=== PATIENT | female | born 1970 | race Caucasian/White ===

== ENCOUNTER 2021-03-17 05:02 | Inpatient (IN) | payer BC ==
[~2021-03-17] VITALS: Ht 165.1 cm; Wt 72.2 kg
[2021-03-17] MEDS ORDERED: BISACODYL 10 MG SUPP (DULCOLAX) PR PRN (05:30)
[2021-03-17] MEDS ORDERED: ONDANSETRON 4 MG/2 ML (SDV) Z0FRAN IV PRN (05:30)
[2021-03-17] MEDS ORDERED: ANTACID SUSP 30 ML UDC (MYLANTA) PO PRN ×2 (05:30→08:00)
[2021-03-17] MEDS ORDERED: DOCUSATE SODIUM 100 MG (COLACE) CAP PO PRN (05:30)
[2021-03-17] MEDS ORDERED: ACETAMINOPHEN 500 MG TAB (TYLENOL) PO PRN (05:30)
[2021-03-17] MEDS ORDERED: LOPERAMIDE 2 MG (IMODIUM) TABLET PO PRN (05:30)
[2021-03-17] MEDS ORDERED: diphenhydrAMINE 25 MG TAB (BENADRYL) PO PRN ×2 (05:30)
[2021-03-17] MEDS ORDERED: LACTULOSE SYRUP 10GM/15ML (ENULOSE) 30ML UDC PO PRN (05:30)
[2021-03-17] MEDS ORDERED: MILK OF MAGNESIA 400 MG/5 ML 30 ML UDC PO PRN (05:30)
[2021-03-17] MEDS ORDERED: ONDANSETRON 4 MG (ZOFRAN) ORAL DISSOLVE TAB PO PRN (05:30)
[2021-03-17] MEDS ORDERED: NALOXONE 0.4 MG/ML 1 ML (NARCAN) VIAL IV PRN (05:30)
[2021-03-17] MEDS ORDERED: diphenhydrAMINE 50 MG/ML INJ (BENADRYL) IVP PRN (05:30)
[2021-03-17] MEDS ORDERED: CALCIUM CARBONATE 500 MG (TUMS) TAB.CHEW PO PRN ×2 (05:30)
[2021-03-17] MEDS ORDERED: polyethylene glycoL POWDER 17 GM (MIRALAX) PACK PO PRN (05:30)
[2021-03-17] MEDS ORDERED: MELATONIN 3 MG TABLET PO PRN (05:30)
[2021-03-17] MEDS ORDERED: ALPRAZolam 0.25 MG (XANAX) TAB PO PRN (05:30)
[2021-03-17] MEDS ORDERED: HYDROcodone/APAP 5 MG/325 MG (LORTAB) TAB PO PRN (05:30)
--- OUTSIDE RECORDS SUMMARY | 2021-03-17 06:54 | XMS REPORT | Clinical Summary ---
Author Author [facility] Address Unknown Phone Unavailable Care Team Providers Care Railcar Switchman Name Role Phone Prosper Nichols PCP Source Comments Some departments are not documenting in the electronic medical record. If you d o not see the information that you expected, contact Release of Information in [facility] [employer] Information Management department at [phone] for further assistan ce in locating additional records.[facility] Allergies Not on File Medications End Date Status Medication Sig Dispensed Refills Start Date Active estradioL (ESTRACE) 1 mg Take 1 mg by 0 tablet mouth daily. Active escitalopram oxalate Take 10 mg by 0 (LEXAPRO) 10 mg tablet mouth daily. 0 Active telmisartan (MICARDIS) 40 Take 40 mg by 0 03/0 mg tablet mouth daily. 0 Active gabapentin (NEURONTIN) Take one 180 capsule 3 100 mg capsule capsule by 0 mouth twice daily. Active atorvastatin (LIPITOR) 40 Take 40 mg by 0 / mg tablet mouth at 0 bedtime daily. Active clopiDOGrel (PLAVIX) 75 Take 75 mg by 0 mg tablet mouth every 0 morning. Active isosorbide mononitrate SR 0 (IMDUR) 30 mg tablet 0 Active aspirin 81 mg chewable CHEW AND 0 02 tablet SWALLOW 1 0 TABLET BY MOUTH IN THE MORNING Active Problems Not on file Surgical History Surgery Date Site/Laterality Comments HYSTERECTOMY FOOT SURGERY Medical History Medical History Date Comments Essential hypertension, benign Anxiety disorder Family History Medical History Relation Name Comments None Reported Brother Heart Disease Father Hypertension Father Heart Disease Paternal Grandmother None Reported Sister None Reported Sister None Reported Son Relation Name Status Comments Brother Alive Father Alive Maternal Grandfather Maternal Grandmother Mother Alive Paternal Grandfather Paternal Grandmother Sister Alive Sister Alive Son Alive Social History Date Tobacco Use Types Packs/Day Years Used Never Smoker Smokeless Tobacco: Never Used Comments Alcohol Use Standard Drinks/Week Never 0 (1 standard drink = 0.6 o z pure alcohol) Alcohol Habits Answer Date Recorded How often do you have a drink containing alcohol? Never 10/15/2019 How many drinks containing alcohol do you have on No t asked a typical day when you are drinking? How often do you have six or more drinks on one Not asked occasion? Sex Assigned at Date Recorded Female 10/23/2019 7:47 AM CDT Last Filed Vital Signs Reading Time Taken Comments Vital Sign 131/89 01/20/2020 10:38 AM CDT Blood Pressure 62 01/20/2020 10:38 AM CDT Pulse 36.4 C (97.5 F) 01/20/2020 10:38 AM CDT Temperature 16 01/20/2020 10:38 AM CDT Respiratory Rate 100% 01/20/2020 10:38 AM CDT Oxygen Saturation - - Inhaled Oxygen Concentration 74.4 kg (164 lb) 01/20/2020 10:38 AM CDT Weight 167.6 cm (5' 6") 01/20/2020 10:38 AM CDT Height 26.47 01/20/2020 10:38 AM CDT Body Mass Index Plan of Treatment Health Maintenance Due Date Last Done Comments DTAP/TDAP VACCINES (1 - 1989 Tdap) HEPATITIS C SCREENING 1989 PHYSICAL (COMPREHENSIVE) 1989 EXAM CERVICAL CANCER SCREENING 1992 BREAST CANCER SCREENING 2011 INFLUENZA VACCINE 04/28/2021 HIV SCREENING Completed 10/23/2019 Results Not on filefrom Last 3 Months Insurance Type Payer Benefit Subscriber ID Effective Phone Address Plan / Dates Group PPO BCBS [facility] [id number] PREF CARE resent BLUE Advance Directives Patient Electronics Manufacturer Explanation Type Date Recorded Advance Directive/DPOA
[2021-03-17 07:43] LABS: BASOPHILS # (AUTO) 0.1 10^3/uL (0.0-0.1); BASOPHILS % (AUTO) 1 % (0-10); EOSINOPHILS # (AUTO) 0.1 10^3/uL (0.0-0.3); EOSINOPHILS % (AUTO) 2 % (0-10); HEMATOCRIT 42 % (35-52); HEMOGLOBIN 14.2 g/dL (11.5-16.0); LYMPHOCYTES # (AUTO) 1.1 10^3/uL (1.0-4.0); LYMPHOCYTES % (AUTO) 16 % (12-44); MEAN CORPUSCULAR HEMOGLOBIN 31 pg (25-34); MEAN CORPUSCULAR HGB CONC 34 g/dL (32-36); MEAN CORPUSCULAR VOLUME 90 fL (80-99); MEAN PLATELET VOLUME 9.7 fL (9.0-12.2); MONOCYTES # (AUTO) 0.6 10^3/uL (0.0-1.0); MONOCYTES % (AUTO) 8 % (0-12); NEUTROPHILS % (AUTO) 73 % (42-75); PLATELET COUNT 206 10^3/uL (130-400); WHITE BLOOD COUNT 6.9 10^3/uL (4.3-11.0)
[2021-03-17 08:00] LABS: ALBUMIN 3.8 GM/DL (3.2-4.5); BILIRUBIN,TOTAL 0.6 MG/DL (0.1-1.0); CALCIUM 9.6 MG/DL (8.5-10.1); CREATININE SERUM 0.78 MG/DL (0.60-1.30); TOTAL PROTEIN 6.3 GM/DL (6.4-8.2)
[2021-03-17] MEDS: DOCUSATE SODIUM 100 MG (COLACE) CAP PO SCH ×2 (08:00→21:45)
[2021-03-17] MEDS: SENNA W/DOCUSATE (SENOKOT S) TABLET PO SCH ×2 (08:01→21:45)
[2021-03-17] MEDS: SENNOSIDES 8.6 MG (SENOKOT) TAB PO SCH ×2 (08:01→21:45)
[2021-03-17] MEDS ORDERED: CLOPIDOGREL 300 MG (PLAVIX) TABLET PO ONE (09:15)
--- NOTE | 2021-03-17 09:42 | Consultation-Cardiology ---
HPI-Cardiology Cardiology Consultation: Date of Consultation 03/17/21 Time Seen by a Provider: 08:45 Date of Admission Attending Physician Marcela Devries DO Admitting Physician Lindsay,Local Physician Consulting Physician SAKINA ASHLEY MD, MA, FACP, FACC, FSCAI, CCDS HPI: Chief Complaint: Chest discomfort HPI 50 yo woman admitted to Dr Devries's service after being transferred from [place] where she had presented with upper, midsternal, chest discomfort, radiating to neck and intermittently associated with diaphoresis. First two sets of troponin at [place] were, reportedly, normal. Troponin done at this hospital has been mildly elevated. The chest discomfort persisted a couple of hours and she has not had any since about 3 am today. Denies palp or syncope. [facility] had similar discomfort a year ago and underwent cardiac by her telecommunications officer Dr Cunha at [facility]. [facility] was told had only about 20% blockage. Was place on Plavix for a year, and on ASA indefinitely. Has also since been on isosorbide. Notes a h/o hyperlipidemia for which she has been on atorvastatin Review of Systems-Cardiology Review of Systems Constitutional: No lightheadedness, No malaise, No tiredness, No weight loss, No weight gain Eyes: No vision change Ears/Nose/Throat: No ear discharge, No nasal drainage, No recent hearing loss Respiratory: As described under HPI Cardiovascular: As described under HPI Gastrointestinal: No diarrhea, No nausea, No vomiting Genitourinary: No dysuria, No hematuria, No urine frequency changes Musculoskeletal: No back pain, No joint pain Skin: No rash, No ulcerations Psychiatric/Neurological: No seizure, No focal weakness, No syncope Hematologic: No bleeding abnormalities UZN-Nlvsjp-Czyamj Hx Patient Social History Have you traveled recently?: No Alcohol Use?: No Pt feels they are or have been: No Past Medical History PMH As described under Assessment. Family Medical History Family Medical History: Does not report fam h/o early CAD Allergies and Home Medications Allergies Coded Allergies: No Allergy Information Available (Unverified , 03/17/21) Patient Home Medication List Home Medication List Reviewed: Yes Physical Exam-Cardiology Physical Exam Vital Signs/I&O 03/17/21 03/17/21 03/17/21 03/17/21 06:23 06:29 07:00 07:00 Temp 36.0 Pulse 57 52 57 Resp 16 8 B/P (MAP) 130/65 (86) 132/73 (95) Pulse Ox 100 100 O2 Delivery Nasal Cannula Nasal Cannula Nasal Cannula O2 Flow Rate 2.00 2.00 2.00 03/17/21 03/17/21 03/17/21 03/17/21 07:24 08:00 08:32 08:35 Temp 35.8 Pulse 52 Resp 9 B/P (MAP) 122/69 (95) Pulse Ox 100 O2 Delivery Nasal Cannula Room Air Room Air O2 Flow Rate 2.00 Capillary Refill : Constitutional: AAO x 3, well-developed, well-nourished HEENT: hearing is well preserved Neck: carotid pulses are 2 + bilaterally, with good upstrokes Respiratory: No accessory muscle use; other (good, biateral air entry) Cardiovascular: regular rate-rhythm, S1 and S2, systolic murmur (faint TEODORA at card basse) Gastrointestinal: No tender; soft; No guarding, No rebound; audible bowel sounds Extremities: No clubbing, No cyanosis, No significant edema Neurologic/Psychiatric: oriented x 3, other (moves all limbs equally) Skin: No rash on exposed areas, No ulcerations on exposed areas Data Review Labs Laboratory Tests 03/17/21 07:37: White Blood Count 6.9, Red Blood Count 4.66, Hemoglobin 14.2, Hematocrit 42, Mean Corpuscular Volume 90, Mean Corpuscular Hemoglobin 31, Mean Corpuscular Hemoglobin Concent 34, Red Cell Distribution Width 11.9, Platelet Count 206, Mean Platelet Volume 9.7, Immature Granulocyte % (Auto) 0, Neutrophils (%) (Auto) 73, Lymphocytes (%) (Auto) 16, Monocytes (%) (Auto) 8, Eosinophils (%) (A uto) 2, Basophils (%) (Auto) 1, Neutrophils # (Auto) 5.0, Lymphocytes # (Auto) 1.1, Monocytes # (Auto) 0.6, Eosinophils # (Auto) 0.1, Basophils # (Auto) 0.1, Immature Granulocyte # (Auto) 0.0, Sodium Level 141, Potassium Level 4.0, Chloride Level 108H, Carbon Dioxide Level 25, Anion Gap 8, Blood Urea Nitrogen 17, Creatinine 0.78, Estimat Glomerular Filtration Rate 78, BUN/Creatinine Ratio 22, Glucose Level 102, Calcium Level 9.6, Corrected Calcium 9.8, Total Bilirubin 0.6, Aspartate Amino Transf (AST/SGOT) 18, Alanine Aminotransferase (ALT/SGPT) 16, Alkaline Phosphatase 91, Troponin I 0.203H, Total Protein 6.3L, Albumin 3.8 Laboratory Tests 03/17/21 07:37 A/P-Cardiology Assessment/Admission Diagnosis Ac NSTEMI CAD - pt report h/o 20% stenoses on card cath of early [address] Cunha at [facility] Hypertension Discussion and Recomendations * Card cath advised. Discussed this in detail. She understands all issues and refuses cardiac cath. Says will let us know if she changes her mind * Dual antiplatet therapy * Continue statin and isosorbide and telmisartan that she has chronically been on * Not suitable for beta-olivia, given considerable sinus lukas at baseline * Echo * Further recs based on hospital course SAKINA ASHLEY MD FACP FAC CCDS Mar 17, 2021 09:42
[2021-03-17] MEDS ORDERED: ISOSORBIDE MONONITRATE 30 MG (IMDUR) TAB PO SCH ×2 (09:50→21:00)
[2021-03-17] MEDS: PANTOPRAZOLE 40 MG (PROTONIX) TAB PO SCH (10:04)
[2021-03-17] MEDS: ASPIRIN 81 MG CHEW (CHILDREN'S ASA) PO SCH (10:04)
[2021-03-17] MEDS: ENOXAPARIN 80 MG/0.8 ML (LOVENOX) SYR SC SCH ×2 (10:20→20:51)
--- NOTE | 2021-03-17 10:24 | Tele-ICU Consult ---
History of Present Illness History of Present Illness Date Seen by Provider: Mar 17, 2021 Time Seen by Provider: 09:45 Reason for Visit: chest pain History of Present Illness She is a 50-year-old female who has history of her minimal coronary artery disease a year ago presented with midsternal and upper sternal chest pain radiating to neck and intermittently associated with diaphoresis. Reportedly had 2 sets of troponin at [facility] were negative but a third set at this hospital is slightly elevated. Patient was seen by plate corrector who recommended a cardiac catheterization but patient refused. She will be started on a Plavix and aspirin. Currently resting comfortably. Allergies and Home Medications Allergies Coded Allergies: No Allergy Information Available (Unverified , 03/17/21) Past Medical/Social/Family Hx Patient Social History Tobacco Use?: No Use of E-Cig and/or Vaping dev: No Substance use?: No Alcohol Use?: No Pt stated abuse/neglect: No Immunizations Up To Date Influenza Vaccine Up-to-Date: Yes; Up-to-Date First/Initial COVID19 Vaccinat: June 2020 Second COVID19 Vaccination Preston: July 2020 Tetanus Booster (TDap): Less Than 5 Years Current Status status: No Advance Directives: Yes Advance Directive Location: Home Communicates: Verbally Primary Language: Egyptian Preferred Spoken Language: Egyptian Is interpretation needed?: No Review of Systems Constitutional: other (per attending physician) Sepsis Event Evaluation Height, Weight, BMI Height: '" Weight: lbs. oz. kg; 26.78 BMI Method: Exam Exam Patient acknowledged, consented, and participated in this virtual visit which was conducted using real time audio/video Vital Signs Date Time Temp Pulse Resp B/P (MAP) Pulse Ox O2 Delivery O2 Flow Rate FiO2 03/17/21 09:00 62 17 127/72 (90) 100 Room Air 03/17/21 08:35 Room Air 03/17/21 08:32 Room Air 03/17/21 08:00 52 9 122/69 (95) 100 Nasal Cannula 2.00 03/17/21 07:24 35.8 03/17/21 07:00 57 03/17/21 07:00 52 8 132/73 (95) 100 Nasal Cannula 2.00 03/17/21 06:29 36.0 57 16 130/65 (86) 100 Nasal Cannula 2.00 03/17/21 06:23 Nasal Cannula 2.00 Height & Weight Height: '" Weight: lbs. oz. kg; 26.78 BMI Method: General Appearance: Other (ROS PER ATTENDING PHYSICIAN) Results Lab Laboratory Tests 03/17/21 07:37 Meds reviewed Assessment/Plan Assessment/Plan 1. nonstemi 2 hyperlipedemia 3. hypertension. recomendations 1. Dual antiplatelet therapy per cardiology. 2. statins. LDL goal <70 3. contininue isordil, and telmisartan 4. Echo Critical Care: Critically Ill Patient Time spent with patient (mins): 35 MACK TAN MD Mar 17, 2021 10:24
[2021-03-17] MEDS ORDERED: ESTR1TAB24 PO (10:40)
[2021-03-17] MEDS ORDERED: ASPI-1238 PO (10:40)
[2021-03-17] MEDS ORDERED: ATOR40TA70 PO (10:40)
[2021-03-17] MEDS ORDERED: TELM40TA6 PO (10:40)
[2021-03-17] MEDS ORDERED: ISOS30TA82 PO (10:40)
--- NOTE | 2021-03-17 12:35 | History & Physical-Hospitalist ---
TRANG SUAREZ 03/17/21 1235: History of Present Illness HPI/Chief Complaint Saida Baldwin is a 50y/o F who presents w/ chest pain. Pt reports that she began having chest pain yesterday at around 1700 when she was driving home from work. Describes the chest pain as a pressure in her chest. The pain also radiated up into her neck and she says the neck pain had a burning sensation. Pt states that she was also diaphoretic at this time. That episode resolved on its own before she had another similar event at around midnight. The pain resolved again before returning at 0300 today at which point she went into the ER. Reports that she did not take any medication to try and relieve the pain.Denies any palpitations. She had a similar episode last year. Pt underwent a heart catheterization in [place] and she says she was told she had a 20% blockage. Was started on aspirin and Plavix at that time. Reports that she recent was taken off of the Plavix. Says that she occasionally will have episodes of acid reflux. Reports a history of stomach ulcers. Source: patient Exam Limitations: no limitations Date Seen 03/17/21 Time Seen by a Provider: 08:15 Attending Physician Marcela Devries DO PCP No,Local Physician Referring Physician Date of Admission Mar 17, 2021 at 06:23 Home Medications & Allergies Home Medications Reviewed patient Home Medication Reconciliation performed by pharmacy medication reconciliations vocational rehabilitation technician and/or nursing. Patients Allergies have been reviewed. Allergies Allergies Coded Allergies No Allergy Information Available (Unverified03/17/21) Past Qarlefx-Nfuxqw-Elpsmg Hx Patient Social History Tobacco Use?: No Use of E-Cig and/or Vaping dev: No Substance use?: No Alcohol Use?: No Pt feels they are or have been: No Immunizations Up To Date First/Initial COVID19 Vaccinat: June 2020 Second COVID19 Vaccination Preston: July 2020 Tetanus Booster (TDap): Less Than 5 Years Current Status status: No Advance Directives: Yes Advance Directive Location: Home Communicates: Verbally Primary Language: S[place] T[place]an Preferred Spoken Language: S[place]an Is interpretation needed?: No Review of Systems Constitutional: No chills, No fever Respiratory: No cough, No short of breath Cardiovascular: see HPI Gastrointestinal: No abdominal pain, No nausea, No vomiting Psychiatric/Neurological: Denies Headache; Numbness; Denies Tingling Physical Exam Physical Exam Vital Signs Vital Signs - First Documented 03/17/21 03/17/21 06:23 06:29 Temp 36.0 Pulse 57 Resp 16 B/P (MAP) 130/65 (86) Pulse Ox 100 O2 Delivery Nasal Cannula O2 Flow Rate 2.00 Capillary Refill : Height, Weight, BMI Height: '" Weight: lbs. oz. kg; 26.78 BMI Method: General Appearance: No Apparent Distress, WD/WN Respiratory: Lungs Clear, Normal Breath Sounds Cardiovascular: Regular Rate, Rhythm, No Murmur Gastrointestinal: Non Tender, Soft Extremity: Normal Inspection, No Pedal Edema Neurologic/Psychiatric: Alert, Normal Mood/Affect Results Results/Procedures Labs Laboratory Tests 03/17/21 07:37 Patient resulted labs reviewed. Assessment/Plan Assessment and Plan NSTEMI Start Lovenox and plavix Increase Lipitor Continue aspirin Continue troponin monitoring Heart catheterization recommended. Pt denied and wanted to wait and see if she worsened before undergoing a catheterization Hyperlipidemia HTN GERD Start Protonix JASON RAMIREZ MD 03/17/21 1856: History of Present Illness Time Seen by a Provider: 09:35 Past Xxifohv-Wjbiej-Ybamim Hx Family Medical History No Pertinent Family Hx Assessment/Plan Admission Diagnosis NSTEMI Admission Status: Inpatient Order (span 2 midnights) Reason for Inpatient Admission: NSTEMI requiring cardiology intervention Assessment and Plan Patient admitted with NSTEMI. Troponin trending up. Dr. Diane and I both recommended left heart catheterization. Patient and asked for transfer to [place] where she follows with Cardiology. [place] on diversion, not accepting transfers. Patient requesting to defer left heart catheterization. Discussed risks of deferring procedure, patient and understand. Continue to trend troponins and monitor symptoms. Diagnosis/Problems Diagnosis/Problems (1) NSTEMI (non-ST elevation myocardial infarction) Status: Acute (2) CAD (coronary artery disease) Status: Acute Supervisory-Addendum Brief Verification & Attestation Participated in pt care: history, MDM, physical Personally performed: exam, history, MDM, supervision of care Care discussed with: Medical Student Procedures: n/a Results interpretation: Verified all documentation A medical student performed and documented this service in my presence. I reviewed and verified all information documented by the medical student and made modifications to such information, when appropriate. I personally performed the physical exam and medical decision making. TRANG SUAREZ Mar 17, 2021 12:35 JASON RAMIREZ MD Mar 17, 2021 18:56
[2021-03-17] MEDS ORDERED: ESTRADIOL 1 MG TAB (ESTRACE) PO SCH (21:00)
[2021-03-17] MEDS ORDERED: LOSARTAN 50 MG (COZAAR) TAB PO SCH (21:00)
[2021-03-18 03:47] LABS: BASOPHILS # (AUTO) 0.1 10^3/uL (0.0-0.1); BASOPHILS % (AUTO) 1 % (0-10); EOSINOPHILS # (AUTO) 0.4 10^3/uL (0.0-0.3); EOSINOPHILS % (AUTO) 7 % (0-10); HEMATOCRIT 42 % (35-52); HEMOGLOBIN 14.2 g/dL (11.5-16.0); LYMPHOCYTES # (AUTO) 1.7 10^3/uL (1.0-4.0); LYMPHOCYTES % (AUTO) 28 % (12-44); MEAN CORPUSCULAR HEMOGLOBIN 30 pg (25-34); MEAN CORPUSCULAR HGB CONC 34 g/dL (32-36); MEAN CORPUSCULAR VOLUME 90 fL (80-99); MONOCYTES # (AUTO) 0.6 10^3/uL (0.0-1.0); MONOCYTES % (AUTO) 10 % (0-12); NEUTROPHILS # (AUTO) 3.2 10^3/uL (1.8-7.8); NEUTROPHILS % (AUTO) 53 % (42-75); PLATELET COUNT 202 10^3/uL (130-400); WHITE BLOOD COUNT 6.1 10^3/uL (4.3-11.0)
[2021-03-18 03:56] LABS: ALBUMIN 3.6 GM/DL (3.2-4.5); POTASSIUM 3.6 MMOL/L (3.6-5.0)
[2021-03-18 03:59] LABS: TOTAL PROTEIN 5.8 GM/DL (6.4-8.2)
[2021-03-18 04:01] LABS: BILIRUBIN,TOTAL 0.8 MG/DL (0.1-1.0)
[2021-03-18 04:02] LABS: CREATININE SERUM 0.79 MG/DL (0.60-1.30)
[2021-03-18] MEDS: SENNOSIDES 8.6 MG (SENOKOT) TAB PO SCH (07:48)
[2021-03-18] MEDS: SENNA W/DOCUSATE (SENOKOT S) TABLET PO SCH (07:48)
[2021-03-18] MEDS: ASPIRIN 81 MG CHEW (CHILDREN'S ASA) PO SCH (07:48)
[2021-03-18] MEDS: PANTOPRAZOLE 40 MG (PROTONIX) TAB PO SCH (07:48)
[2021-03-18] MEDS: DOCUSATE SODIUM 100 MG (COLACE) CAP PO SCH (07:48)
[2021-03-18] MEDS ORDERED: CLOPIDOGREL 75 MG (PLAVIX) TABLET PO SCH (09:00)
[2021-03-18 09:05] LABS: TRIGLYCERIDES 71 MG/DL (<150); VLDL CHOLESTEROL 14 MG/DL (5-40)
[2021-03-18 09:10] LABS: CHOLESTEROL 144 MG/DL (< 200); HDL CHOLESTEROL 54 MG/DL (40-60)
--- NOTE | 2021-03-18 09:12 | Tele-ICU Progress Note ---
Subjective Date Seen by a Provider: Mar 18, 2021 Time Seen by a Provider: 07:30 Subjective/Events-last exam No chest pain overnight. Resting comfortably. Troponin decreasing. OK to discharge or step down if Cardiology agrees Sepsis Event Evaluation Height, Weight, BMI Height: '" Weight: lbs. oz. kg; 26.78 BMI Method: Exam Exam Patient acknowledged, consented, and participated in this virtual visit which was conducted using real time audio/video Vital Signs Date Time Temp Pulse Resp B/P (MAP) Pulse Ox O2 Delivery O2 Flow Rate FiO2 03/18/21 08:00 64 25 104/70 (79) 100 Room Air 03/18/21 07:50 Room Air 03/18/21 07:00 56 03/18/21 07:00 36.2 03/18/21 07:00 59 18 99/57 (73) 99 Room Air 03/18/21 06:00 69 31 108/65 (79) 96 Room Air 03/18/21 05:00 55 16 98 Room Air 03/18/21 04:00 56 14 98 Room Air 03/18/21 04:00 Room Air 03/18/21 03:00 81 26 116/54 (74) 97 Room Air 03/18/21 02:00 53 12 97/63 (74) 98 Room Air 03/18/21 01:00 58 11 99 Room Air 03/18/21 01:00 62 03/18/21 00:00 Room Air 03/18/21 00:00 54 16 82/39 (53) 98 Room Air 03/18/21 00:00 36.5 03/17/21 23:00 74 18 124/52 (76) 98 Room Air 03/17/21 22:00 59 16 102/60 (74) 97 Room Air 03/17/21 21:00 71 26 98 Room Air 03/17/21 20:00 Room Air 03/17/21 20:00 60 17 105/59 (74) 99 Room Air 03/17/21 19:45 36.3 03/17/21 19:00 58 15 122/56 (78) 98 Room Air 03/17/21 19:00 62 03/17/21 18:00 63 12 126/69 (88) 100 Room Air 03/17/21 17:00 60 9 106/43 (64) 100 Room Air 03/17/21 16:00 63 16 131/71 (91) 99 Room Air 03/17/21 15:38 Room Air 03/17/21 15:25 36.7 03/17/21 15:00 64 10 100 Room Air 03/17/21 14:00 68 13 () 100 Room Air 03/17/21 13:00 51 15 133/74 (97) 100 Room Air 03/17/21 13:00 55 03/17/21 12:00 55 14 126/74 (97) 100 Room Air 03/17/21 12:00 36.1 03/17/21 11:33 Room Air 03/17/21 11:00 53 13 118/74 (89) 100 Room Air 03/17/21 10:00 63 15 132/75 (94) 100 Room Air I & O 03/18/21 07:00 Intake Total 1340 ml Balance 1340 ml Height & Weight Height: '" Weight: lbs. oz. kg; 26.78 BMI Method: General Appearance: No Apparent Distress, WD/WN Respiratory: Lungs Clear, Normal Breath Sounds Cardiovascular: Regular Rate, Rhythm, No Murmur Peripheral Pulses: 1+ Left Dors-Pedis (L), 1+ Radial Pulses (R) Extremity: Normal Inspection, No Pedal Edema Neurologic/Psychiatric: Alert, Normal Mood/Affect Results Lab Laboratory Tests 03/17/21 07:37 03/18/21 03:25 Assessment/Plan Assessment/Plan See free text. Time spent on discussion(mins): 0 RONALDO VIDES MD Mar 18, 2021 09:12
[2021-03-18] MEDS ORDERED: PANT40TA52 PO (12:57)
[2021-03-18] MEDS ORDERED: CLOP75TA28 PO (12:57)
[2021-03-18] MEDS ORDERED: ATOR80TA76 PO (12:57)
--- NOTE | 2021-03-18 13:10 | Discharge Summary ---
Discharge Summary Hospital Course Was the Problem List Reviewed?: Yes Problems/Dx: (1) NSTEMI (non-ST elevation myocardial infarction) Status: Acute (2) CAD (coronary artery disease) Status: Acute Hospital Course Date of Admission: Mar 17, 2021 at 06:23 Admission Diagnosis : Chest pain Family Physician/Provider: No,Local Physician Date of Discharge: 03/18/21 Discharge Diagnosis: NSTEMI Hospital Course: Saida Baldwin is a 50-year-old female with past medical history hypertension, hyperlipidemia, coronary artery disease, who presented from [facility] with chest pain. Cardiology was consulted and assisted with her care. She was given aspirin and started on Plavix. She was treated with therapeutic Lovenox. Her heart rate was too low to tolerate a beta-olivia. Her initial troponin was negative. Her EKG was unremarkable. Her repeat troponin trended up to 0.2. Her chest pain resolved. A left heart catheterization was recommended, but she refused. Her troponin trended up to 0.25, then trended down to 0.1 and then 0.06. She had no recurrence of her chest pain. Left heart catheterization was again recommended that she did not want to proceed. She prefers to follow-up with her drawbridge tender, Dr. Cunha. She was recommended to follow-up with him within a week. She was started on Plavix and her Lipitor was increased. She was started on Protonix for possible acid reflux. She was discharged home in stable condition. She is high risk for recurrent heart attack as no intervention was performed. She was encouraged to return with concerning symptoms including chest pain, shortness of breath, neck pain, jaw pain, arm pain, sweating, lightheadedness, dizziness, or if she feels like she is getting worse. Labs and Pending Lab Test: Laboratory Tests 03/17/21 13:20: Troponin I 0.251H 03/17/21 21:13: Troponin I 0.105H 03/18/21 03:25: Troponin I 0.069H, White Blood Count 6.1, Red Blood Count 4.68, Hemoglobin 14.2, Hematocrit 42, Mean Corpuscular Volume 90, Mean Corpuscular Hemoglobin 30, Mean Corpuscular Hemoglobin Concent 34, Red Cell Distribution Width 12.1, Platelet Count 202, Mean Platelet Volume 10.0, Immature Granulocyte % (Auto) 1, Neutrophi ls (%) (Auto) 53, Lymphocytes (%) (Auto) 28, Monocytes (%) (Auto) 10, Eosinophils (%) (Auto) 7, Basophils (%) (Auto) 1, Neutrophils # (Auto) 3.2, Lymphocytes # (Auto) 1.7, Monocytes # (Auto) 0.6, Eosinophils # (Auto) 0.4H, Basophils # (Auto) 0.1, Immature Granulocyte # (Auto) 0.0, Sodium Level 139, Potassium Level 3.6, Chloride Level 108H, Carbon Dioxide Level 22, Anion Gap 9, Blood Urea Nitrogen 15, Creatinine 0.79, Estimat Glomerular Filtration Rate 77, BUN/Creatinine Ratio 19, Glucose Level 102, Calcium Level 9.0, Corrected Calcium 9.3, Total Bilirubin 0.8, Aspartate Amino Transf (AST/SGOT) 17, Alanine Aminotransferase (ALT/SGPT) 17, Alkaline Phosphatase 81, Total Protein 5.8L, Albumin 3.6, Triglycerides Level 71, Cholesterol Level 144, LDL Cholesterol Direct 79, VLDL Cholesterol 14, HDL Cholesterol 54 Microbiology 03/17/21 MRSA Screen - Final, Complete MRSA not isolated Home Meds Active Pantoprazole Sodium 40 Mg Tablet.dr 40 Mg PO DAILY 30 Days Atorvastatin Calcium 80 Mg Tablet 80 Mg PO HS 30 Days Clopidogrel (Clopidogrel Bisulfate) 75 Mg Tablet 75 Mg PO DAILY 30 Days Reported Aspirin EC (Aspirin) 81 Mg Tablet.dr 81 Mg PO HS Telmisartan 40 Mg Tablet 40 Mg PO HS Atorvastatin Calcium 40 Mg Tablet 40 Mg PO HS Estradiol Tablet (Estradiol) 1 Mg Tablet 1 Mg PO HS Isosorbide Mononitrate ER (Isosorbide Mononitrate) 30 Mg Tab.er.24h 15 Mg PO HS TAKES OF A 30MG TAB Assessment/Pt Instructions Take medications as prescribed. Begin taking Plavix for coronary artery dise ase. We have increased your dose of Lipitor for dyslipidemia. Begin taking Protonix for acid reflux. Follow-up with your drawbridge tender, preferably within the next week. Return with worsening chest pain, shortness of breath, lightheadedness/dizziness, nausea/vomiting, or if you feel like you are getting worse. Discharge Planning: <30 minutes discharge planning Discharge Instructions Discharge Diet: Low Sodium Diet Activity as Tolerated: Yes Consultations Cardiology Discharge Physical Examination Vital Signs Vital Signs Date Time Temp Pulse Resp B/P (MAP) Pulse Ox O2 Delivery O2 Flow Rate FiO2 03/18/21 12:00 62 23 123/84 (97) 100 Room Air 03/18/21 11:59 36.2 03/17/21 08:00 2.00 General Appearance: No Apparent Distress, WD/WN Respiratory: Lungs Clear, Normal Breath Sounds, No Respiratory Distress Cardiovascular: Regular Rate, Rhythm, No Edema, No Murmur Gastrointestinal: Normal Bowel Sounds, Non Tender, Soft Extremity: Normal Inspection, Non Tender, No Pedal Edema Skin: Normal Color, Warm/Dry Neurologic/Psychiatric: Alert, Oriented x3, No Motor/Sensory Deficits, Normal Mood/Affect Allergies: Coded Allergies: No Allergy Information Available (Unverified , 03/17/21) Discharge Summary Date of Admission Mar 17, 2021 at 06:23 Date of Discharge Discharge Date: Mar 18, 2021 Discharge Time: 13:09 Admission Diagnosis Chest pain Consults/Procedures Consulations Cardiology Comfort Measures/ Time spent on discussion (min): 0 Discharge Diagnosis NSTEMI (1) NSTEMI (non-ST elevation myocardial infarction) Status: Acute (2) CAD (coronary artery disease) Status: Acute JASON RAMIREZ MD Mar 18, 2021 13:09
--- NOTE | 2021-03-18 14:37 | Progress Note - Cardiology ---
Cardiology SOAP Progress Note Subjective: No cp or palp or syncope or shortness of breath No weakness or malaise No n/v/d No focal weakness Feels well. Wishes to go home Objective: I&O/Vital Signs 03/18/21 03/18/21 03/18/21 03/18/21 03:00 04:00 04:00 05:00 Pulse 81 56 55 Resp 26 14 16 B/P (MAP) 116/54 (74) Pulse Ox 97 98 98 O2 Delivery Room Air Room Air Room Air Room Air 03/18/21 03/18/21 03/18/21 03/18/21 06:00 07:00 07:00 07:00 Temp 36.2 Pulse 69 59 56 Resp 31 18 B/P (MAP) 108/65 (79) 99/57 (73) Pulse Ox 96 99 O2 Delivery Room Air Room Air 03/18/21 03/18/21 03/18/21 03/18/21 07:50 08:00 09:00 10:00 Pulse 64 55 59 Resp 25 13 20 B/P (MAP) 104/70 (79) 111/71 (86) Pulse Ox 100 99 100 O2 Delivery Room Air Room Air Room Air Room Air 03/18/21 03/18/21 03/18/21 11:00 11:59 12:00 Temp 36.2 Pulse 57 62 Resp 17 23 B/P (MAP) 116/75 (89) 123/84 (97) Pulse Ox 100 100 O2 Delivery Room Air Room Air 03/18/21 00:00 Intake Total 1340 ml Balance 1340 ml Constitutional: AAO x 3, well-developed, well-nourished Respiratory: No accessory muscle use; other (good, biateral air entry) Cardiovascular: regular rate-rhythm, S1 and S2, systolic murmur (faint TEODORA at card basse) Gastrointestional: No tender; soft; No guarding, No rebound; audible bowel sounds Extremities: No clubbing, No cyanosis, No significant edema Neurologic/Psychiatric: oriented x 3, other (moves all limbs equally) Skin: No rash on exposed areas, No ulcerations on exposed areas Results/Procedures: Labs Laboratory Tests 03/17/21 21:13: Troponin I 0.105H 03/18/21 03:25: Troponin I 0.069H, White Blood Count 6.1, Red Blood Count 4.68, Hemoglobin 14.2, Hematocrit 42, Mean Corpuscular Volume 90, Mean Corpuscular Hemoglobin 30, Mean Corpuscular Hemoglobin Concent 34, Red Cell Distribution Width 12.1, Platelet Count 202, Mean Platelet Volume 10.0, Immature Granulocyte % (Auto) 1, Neutrophils (%) (Auto) 53, Lymphocytes (%) (Auto) 28, Monocytes (%) (Auto) 10, Eosinophils (%) (Auto) 7, Basophils (%) (Auto) 1, Neutrophils # (Auto) 3.2, Lymphocytes # (Auto) 1.7, Monocytes # (Auto) 0.6, Eosinophils # (Auto) 0.4H, Basophils # (Auto) 0.1, Immature Granulocyte # (Auto) 0.0, Sodium Level 139, Potassium Level 3.6, Chloride Level 108H, Carbon Dioxide Level 22, Anion Gap 9, Blood Urea Nitrogen 15, Creatinine 0.79, Estimat Glomerular Filtration Rate 77, BUN/Creatinine Ratio 19, Glucose Level 102, Calcium Level 9.0, Corrected Calcium 9.3, Total Bilirubin 0.8, Aspartate Amino Transf (AST/SGOT) 17, Alanine Aminotransferase (ALT/SGPT) 17, Alkaline Phosphatase 81, Total Protein 5.8L, Albumin 3.6, Triglycerides Level 71, Cholesterol Level 144, LDL Cholesterol Direct 79, VLDL Cholesterol 14, HDL Cholesterol 54 Microbiology 03/17/21 MRSA Screen - Final, Complete MRSA not isolated Laboratory Tests 03/17/21 07:37 03/18/21 03:25 A/P: Assessment: Ac NSTEMI CAD - Mild CAD and normal LVEF on card cath of November [address] Cunha at [facility] Hyperlipidemia Hypertension Plan: * We obtained reviewed and discussed with her her records of November 2019 at [facility] * We again advised card cath. She still refuses and wishes to go home * She is currently on dual antiplatelet therapy that is to continue * Continue statin and isosorbide and telmisartan that she has chronically been on * Not suitable for beta-olivia, given considerable sinus lukas at baseline * She does not wish to stay in the hospital any longer. We advised her to return to ER in case of recurrence of symptoms or any new symptoms. 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 She understands and states she will comply SAKINA ASHLEY MD FACP FACC CCDS Mar 18, 2021 14:37
== END 2021-03-18 13:45 | disposition home or self-care (01) | DRG 282 ==
LOC: ICU 06:23
PROVIDERS: ADMIT Internal Medicine; ATTEND Internal Medicine
DX: I21.4 Non-ST elevation (NSTEMI) myocardial infarction (principal); I25.10 Atherosclerotic heart disease of native coronary artery without angina pectoris; E78.5 Hyperlipidemia, unspecified; I10 Essential (primary) hypertension; K21.9 Gastro-esophageal reflux disease without esophagitis; R00.1 Bradycardia, unspecified; Z79.899 Other long term (current) drug therapy; Z79.82 Long term (current) use of aspirin
CPT/HCPCS: 36415; 80053; 80061; 84484; 85025; 87081; 93005; 99211; G0378

== ENCOUNTER → 2022-06-18 | Outpatient (CLI) | payer BC ==
[~2022-06-18] VITALS: Ht 165.1 cm; Wt 68.2 kg
[~2022-06-18] MED LIST: ASPI-1238 PO; ATOR40TA70 PO; ATOR80TA76 PO; CLOP75TA28 PO; ESTR1TAB24 PO; ISOS30TA82 PO; LIDOCAINE 1% INJ 30 ML (XYLOCAINE) VIAL INJ ONE; PANT40TA52 PO; TELM40TA6 PO
--- NOTE | 2022-06-18 12:54 | Diagnostic Imaging Report ---
INDICATION: Left breast density. Patient is status post ultrasound guided biopsy. TECHNIQUE: Unilateral left 2D CC and ML mammography was performed after the patient underwent vacuum-assisted ultrasound-guided mammotome biopsy. FINDINGS: Mammographic images demonstrate a marker clip in the 3 o'clock location of the left breast at mid depth. There is some surrounding density which likely represents a small amount of perilesional hemorrhage. IMPRESSION: Clip placement, status post ultrasound-guided left breast biopsy. Dictated by: Dictated on workstation # [id number]
--- NOTE | 2022-06-18 13:10 | Diagnostic Imaging Report ---
INDICATION: Left breast nodule. Patient presents for ultrasound-guided biopsy. DETAILS OF THE PROCEDURE: The patient was brought to the sonographic suite and placed on the table in the supine position. Ultrasound imaging of the left breast was performed to evaluate for an appropriate entry site. The left breast was then prepped and draped in the usual sterile fashion. A small amount of 1% lidocaine was utilized for local anesthesia. A 13-gauge hand held mammotome vacuum-assisted device was advanced and placed with its tip along the undersurface of the hypoechoic nodule at the 3 o'clock location of the left breast. A total of 4 core biopsies was obtained. A marker clip was then deployed. Hemostasis was obtained using manual compression. The patient tolerated the procedure well and was sent for a post procedure mammogram in satisfactory condition. IMPRESSION: Successful ultrasound-guided biopsy of the tiny nodule at the 3 o'clock location of the left breast utilizing a 13-gauge hand-held vacuum-assisted mammotome device. Pathology results are currently pending. Dictated by: Dictated on workstation # [id number]
== END ==
LOC: RAD 11:12
PROVIDERS: ATTEND Family Medicine
DX: N63.20 Unspecified lump in the left breast, unspecified quadrant (principal)
CPT/HCPCS: 19083; 77065; G0279